=== PATIENT | female | born 1955 | race Caucasian/White ===

== ENCOUNTER → 2016-12-27 | Outpatient (CLI) | payer OTHER | LOC: BMCIMAGING 15:53 | PROVIDERS: ATTEND Podiatrist Foot & Ankle Surgery | DX: S82.492A Other fracture of shaft of left fibula, initial encounter for closed fracture (principal) ==

== ENCOUNTER → 2017-01-05 | Outpatient (CLI) | payer OTHER | LOC: BMCIMAGING 13:52 | PROVIDERS: ATTEND Podiatrist Foot & Ankle Surgery | DX: Z13.820 Encounter for screening for osteoporosis (principal); M85.80 Other specified disorders of bone density and structure, unspecified site ==

== ENCOUNTER → 2017-02-07 | Outpatient (CLI) | payer OTHER | LOC: BMCIMAGING 13:48 | PROVIDERS: ATTEND Podiatrist Foot & Ankle Surgery | DX: S82.65XA Nondisplaced fracture of lateral malleolus of left fibula, initial encounter for closed fracture (principal) ==

== ENCOUNTER → 2017-02-28 | Outpatient (CLI) | payer OTHER | LOC: BMCIMAGING 14:36 | PROVIDERS: ATTEND Podiatrist Foot & Ankle Surgery | DX: S82.892G Other fracture of left lower leg, subsequent encounter for closed fracture with delayed healing (principal) ==

== ENCOUNTER → 2017-03-24 | Outpatient (CLI) | payer OTHER | LOC: BMCIMAGING 09:30 | PROVIDERS: ATTEND Podiatrist Foot & Ankle Surgery | DX: S82.892A Other fracture of left lower leg, initial encounter for closed fracture (principal); X58.XXXA Exposure to other specified factors, initial encounter; M77.32 Calcaneal spur, left foot ==

== ENCOUNTER → 2017-05-05 | Outpatient (CLI) | payer OTHER | LOC: BMCIMAGING 13:19 | PROVIDERS: ATTEND Podiatrist Foot & Ankle Surgery | DX: S82.892D Other fracture of left lower leg, subsequent encounter for closed fracture with routine healing (principal) ==

== ENCOUNTER → 2017-07-07 | Outpatient (CLI) | payer OTHER | LOC: BMCIMAGING 13:01 | PROVIDERS: ATTEND Podiatrist Foot & Ankle Surgery | DX: S82.62XD Displaced fracture of lateral malleolus of left fibula, subsequent encounter for closed fracture with routine healing (principal) ==

== ENCOUNTER → 2017-07-21 | Outpatient (CLI) | payer OTHER | LOC: BMCIMAGING 13:09 | PROVIDERS: ATTEND Internal Medicine | DX: Z12.31 Encounter for screening mammogram for malignant neoplasm of breast (principal) | CPT/HCPCS: G0202 ==

== ENCOUNTER → 2017-09-20 | Outpatient (CLI) | payer OTHER | LOC: BMCIMAGING 14:13 | PROVIDERS: ATTEND Podiatrist Foot & Ankle Surgery | DX: S82.832D Other fracture of upper and lower end of left fibula, subsequent encounter for closed fracture with routine healing (principal) ==

== ENCOUNTER → 2018-08-15 | Outpatient (CLI) | payer OTHER | LOC: BMCIMAGING 13:28 | PROVIDERS: ATTEND Internal Medicine | DX: Z12.31 Encounter for screening mammogram for malignant neoplasm of breast (principal) ==